=== PATIENT | female | born 1990 | race Caucasian/White ===

== ENCOUNTER 2017-05-11 08:00 | Day surgery (SDC) | payer BC ==
[2017-05-10 12:21] VITALS: BMI 31.1
[2017-05-11] MEDS ORDERED: BUPIVACAINE HCL/PF 0.5% (5MG/ML) 10 ML VIAL ONE (09:34)
[2017-05-11] MEDS ORDERED: LIDOCAINE HCL 2% (20ML MULTI-DOSE VIAL) NR ONE (09:34)
[2017-05-11] MEDS ORDERED: MIDAZOLAM HCL 2 MG/2 ML SINGLE DOSE VIAL ONE (09:36)
[2017-05-11] MEDS ORDERED: PROPOFOL 20 ML ONE ×3 (09:41)
[2017-05-11] MEDS ORDERED: ceFAZolin SODIUM 1 GM VIAL ONE (09:50)
[2017-05-11] MEDS ORDERED: LIDOCAINE HCL 2% (50ML VIAL) INF ONE (10:29)
[2017-05-11] MEDS ORDERED: BUPIVACAINE HCL/PF 0.5% (5MG/ML) 10 ML VIAL IJ ONE ×2 (10:30→10:39)
[2017-05-11 11:58] VITALS: TEMP 98
[2017-05-11 12:00] VITALS: BP 124/74; PULSE 68
--- NOTE | 2017-05-13 16:26 | PATH ---
Surgical Pathology Report Patient Name: YVROSE [facility]AMAN [facility]. Rec. #: [id number] /Age/Gender: 1990 (Age: 26) / F Account: [id number] Location: [facility] AMBULATORY Taken: 05/11/2017 Received: 05/11/2017 Reported: 05/13/2017 Physicians: Louis Alvarez M.D. 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 NO MALIGNANT FEATURES IDENTIFIED. Comment: Recommend correlation with clinical and radiologic findings and follow up as clinically indicated. Electronically Signed Addison Link M.D. Gross Description Received in formalin labeled "soft tissue mass right ring finger," is a 0.6 x 0.5 x 0.1 cm laboy, irregular portion of soft tissue. The specimen is bisected and entirely submitted in one cassette. 05/11/2017 [facility]05/11/2017
--- NOTE | 2017-05-15 12:01 | OP ---
DATE OF OPERATION: 05/11/2017 PREOPERATIVE DIAGNOSIS: Right ring finger soft tissue mass. POSTOPERATIVE DIAGNOSIS: Right ring finger soft tissue mass. PROCEDURES: 1. Excision soft tissue mass, right ring finger. 2. Flexor synovectomy. 3. Volar plate repair. SURGEON: Louis Alvarez MD MANAGER POST: None. ANESTHESIA: Local with sedation. ESTIMATED BLOOD LOSS: Minimal. COMPLICATIONS: None. OPERATIVE INDICATIONS: This is a patient who has been suffering from a mass of the right ring finger for over a year. She first saw me a year ago when the ring got stuck on the finger due to the swelling related to the mass. She has recently noticed persistent enlarging as well as difficulty performing activities of daily living and pain. She wishes to have surgical excision. We discussed the risks, benefits, and alternatives at great length. The risks were explained as including, but not limited to: persistence of the symptoms, injury to adjacent structures, range of motion impairment, need for reoperative surgery, infection, and bleeding. Patient voiced understanding of all these risks. All questions were answered, and consent was signed. OPERATIVE COURSE: The patient was brought to the operating room where a time-out was performed. Anesthesia administered sedation. The patient was laid supine on the operating room table with the right arm out on an arm board. A digital nerve block was performed of the right ring finger using 1% lidocaine, 0.5% Marcaine, and bicarbonate. The hand was prepped and draped in standard sterile fashion. A finger Tourni-Cot was applied to the right ring finger. The mass was over the proximal digital crease corresponding to the PIP joint. A mid-axial incision was made to elevate a skin flap. Great care was taken to identify and protect the neurovascular bundles of the digit. The mass appeared to be emanating from beneath the flexor tendons. There was copious inflamed synovium at this level adherent to the flexor tendons, which were sharply excised with tenotomy scissors. Flexor tendons were gently retracted using Ragnell retractors. The mass appeared to be in continuity and emanating from the volar plate. The ligament and the volar plate were longitudinally incised, and the 0.3 x 0.5 mass was excised. The area was then palpated for further evidence of the soft tissue mass, which was now flat, and the mass was fully excised from the area in question. The volar plate had a consequent defect, which was reapproximated using 4-0 FiberWire suture. This was done in a figure-of-8 fashion. The wound was then copiously irrigated. The skin flaps were reapproximated using 5-0 nylon interrupted sutures. The finger Tourni-Cot was removed. Good capillary refill was noted in the digit distally as well as in normal finger flexion cascade. The patient was placed into a finger splint. She tolerated the procedure well and was brought to the recovery room in stable condition. Elina [id number]
== END 2017-05-11 11:55 | disposition home or self-care (01) ==
LOC: FASU 08:00
PROVIDERS: ATTEND Surgery Surgery of the Hand
PROC: 0RBW0ZZ Excision of Right Finger Phalangeal Joint, Open Approach (ICD-10-PCS; 2017-05-11)
PROC: 0RQW0ZZ Repair Right Finger Phalangeal Joint, Open Approach (ICD-10-PCS; 2017-05-11)
PROC: 0JBJ0ZZ Excision of Right Hand Subcutaneous Tissue and Fascia, Open Approach (ICD-10-PCS; principal; 2017-05-11 10:24)
DX: D21.11 Benign neoplasm of connective and other soft tissue of right upper limb, including shoulder (principal); M65.841 Other synovitis and tenosynovitis, right hand
CPT/HCPCS: 84703; 88304-TC

== ENCOUNTER 2020-12-23 19:00 | Emergency (ER) | payer BC ==
[2020-12-23 19:16] VITALS: BP 120/63; PULSE 74; TEMP 99.4; BMI 35.9
[2020-12-23] MEDS ORDERED: ONDANSETRON 4 MG/2 ML VIAL IVPUSH ONE (19:29)
[2020-12-23] MEDS ORDERED: DEXTROSE 5%-NORMAL SALINE 1,000 ML IV ONE ×2 (19:30)
[2020-12-23] MEDS ORDERED: ONDANSETRON 4 MG/2 ML VIAL ONE (19:45)
[2020-12-23 20:12] LABS: EPITHELIAL CELLS MODERATE /hpf
[2020-12-23 20:25] LABS: MEAN PLT VOLUME 7.8 fl (7.5-11.1)
[2020-12-23 20:27] LABS: HEMATOCRIT 40.4 % (32.4-45.2); MCH 29.8 pg (25.7-33.7); MCHC 34.7 g/dl (32.0-36.0); PLATELET COUNT 250 K/MM3 (134-434); RDW 12.2 % (11.6-15.6); WHITE BLOOD COUNT 14.8 K/mm3 (4.0-10.8)
[2020-12-23 20:31] LABS: ADD RBC MORPHOLOGY YES
[2020-12-23 20:36] LABS: ALBUMIN 4.1 g/dl (3.4-5.0); BILIRUBIN,TOTAL 0.6 mg/dl (0.2-1); CALCIUM 9.2 mg/dl (8.5-10); CREATININE 1.2 mg/dl (0.55-1.3); POTASSIUM 3.4 mmol/L (3.5-5.1); TOT PROT 7.7 g/dl (6.4-8.2)
[2020-12-23 21:27] LABS: PLATELET ESTIMATE ADEQUATE
== END 2020-12-23 22:05 | disposition home or self-care (01) ==
LOC: FER 19:00
PROC: 3E033NZ Introduction of Analgesics, Hypnotics, Sedatives into Peripheral Vein, Percutaneous Approach (ICD-10-PCS; principal; 2020-12-23)
PROC: 3E0337Z Introduction of Electrolytic and Water Balance Substance into Peripheral Vein, Percutaneous Approach (ICD-10-PCS; 2020-12-23)
DX: O21.0 Mild hyperemesis gravidarum (principal); N30.00 Acute cystitis without hematuria
CPT/HCPCS: 36415; 80053; 81003; 81015; 85025; 99285-25

== ENCOUNTER 2021-07-29 19:15 | Inpatient (IN) | payer BC ==
[2021-07-29] MEDS: DEXTROSE 5%-LACTATED RINGERS 1,000 ML IV SCH (20:00)
[2021-07-29] MEDS: ELECTROLYTE-148 SOLN 1,000 ML IV SCH (20:00)
[2021-07-29 21:04] LABS: BASO % 0.4 % (0-2.0); EOS % 0.5 % (0-4.5); EPI CELLS 26 /uL (0-25.1); HEMATOCRIT 31.2 % (32.4-45.2); HEMOGLOBIN 10.9 GM/dL (10.7-15.3); HYALINE CASTS 2 /uL (0-3.1); LYMPH % 19.7 % (8-40); MCH 29.7 pg (25.7-33.7); MCHC 34.8 g/dl (32.0-36.0); MEAN CELL VOLUME 85.4 fl (80-96); MEAN PLT VOLUME 9.2 fl (7.5-11.1); MONO % 7.1 % (3.8-10.2); NEUT % 72.3 % (42.8-82.8); PH,URINE 6.5 (5.0-8.0); PLATELET COUNT 192 10^3/uL (134-434); RBC 3.66 M/mm3 (3.60-5.2); RDW 13.2 % (11.6-15.6); RETICULOCYTES 2.18 % (0.5-1.5); URINE APPEARANCE CLEAR; URINE BACTERIA 733 /uL (0-1359); URINE BILIRUBIN NEGATIVE (NEGATIVE); URINE COLOR YELLOW; URINE GLUCOSE (UA) NEGATIVE (NEGATIVE); URINE KETONE NEGATIVE (NEGATIVE); URINE LEUK ESTERASE TRACE (NEGATIVE); URINE NITRITE NEGATIVE (NEGATIVE); URINE PROTEIN 2+ (NEGATIVE); URINE RBC 6 /uL (0-23.9); URINE WBC 17 /uL (0-25.8); WHITE BLOOD COUNT 9.5 K/mm3 (4.0-10.0)
[2021-07-29 21:10] LABS: INR 0.87 (0.83-1.09); PROTHROMBIN TIME (PATIENT) 10.7 SEC (9.7-13.0)
[2021-07-29 21:13] LABS: ACTIVATED PTT 25.4 SECONDS (25.2-36.5)
[2021-07-29 21:28] LABS: CALCIUM 8.1 mg/dL (8.5-10.1)
[2021-07-29] MEDS ORDERED: DINOPROSTONE 10 MG VAGINAL SUPPOSITORY VG ONE (21:30)
[2021-07-29 21:31] LABS: CREATININE 0.6 mg/dL (0.55-1.3); URIC ACID 4.3 mg/dL (2.6-7.2)
[2021-07-29] MEDS ORDERED: BUTORPHANOL TARTRATE 1 MG/ML VIAL IVPB ONE (21:34)
[2021-07-29] MEDS ORDERED: PROMETHAZINE HCL 25 MG/1 ML VIAL IVPUSH ONE (21:34)
[2021-07-29] MEDS ORDERED: ELECTROLYTE-148 SOLN 1,000 ML IV SCH (21:45)
[2021-07-29 22:33] VITALS: BMI 35.3
[2021-07-30] MEDS ORDERED: ACETAMINOPHEN 325 MG TABLET (FP) PO ONE (03:20)
[2021-07-30] MEDS ORDERED: ACETAMINOPHEN 325 MG TABLET (FP) ONE (03:26)
[2021-07-30] MEDS: DEXTROSE 5%-LACTATED RINGERS 1,000 ML IV SCH ×2 (05:00→22:19)
[2021-07-30] MEDS ORDERED: LABETALOL HCL 5 MG/1 ML (100MG/20 ML VIAL) IVPUSH ONE (09:27)
[2021-07-30] MEDS ORDERED: OXYTOCIN 30 UNITS in 0.9% NS 30 UNIT/500 ML INFUS.BAG IVPB SCH (09:30)
[2021-07-30] MEDS: LABETALOL HCL 5 MG/1 ML (100MG/20 ML VIAL) IVPUSH PRN ×2 (09:55→15:10)
[2021-07-30 11:13] LABS: CALCIUM 7.7 mg/dL (8.5-10.1)
[2021-07-30 11:14] LABS: BLOOD UREA NITROGEN 4.8 mg/dL (7-18)
[2021-07-30 11:16] LABS: CREATININE 0.5 mg/dL (0.55-1.3)
[2021-07-30] MEDS ORDERED: OXYTOCIN 30 UNITS in 0.9% NS 30 UNIT/500 ML INFUS.BAG IVPB ONE (11:48)
[2021-07-30] MEDS ORDERED: MAGNESIUM SULFATE 20GM/500ML - 20 GM/500 ML INFUS.BAG IVPB SCH (14:15)
[2021-07-30] MEDS ORDERED: MAGNESIUM SULFATE 20GM/500ML - 20 GM/500 ML INFUS.BAG ONE ×2 (14:27→22:01)
[2021-07-30] MEDS: MAGNESIUM 4GM/H20 - 4 GM/100 ML IVPB IVPB SCH (14:40)
[2021-07-30] MEDS ORDERED: CITRIC ACID/SODIUM CITRATE 30 ML UNIT-DOSE CUP PO ONE (18:44)
[2021-07-30] MEDS ORDERED: OXYTOCIN 20 UNITS in 0.9% NS 20 UNIT/1,000 ML INFUS.BAG IV ONE (18:56)
[2021-07-30] MEDS ORDERED: SENNOSIDES/DOCUSATE COMBO (SENNA PLUS) TABLET (UD) PO PRN (20:31)
[2021-07-30] MEDS ORDERED: WITCH HAZEL 50% (TUCKS) 40 PAD/JAR PAD TP PRN (20:31)
[2021-07-30] MEDS ORDERED: oxyCODONE HCL 5 MG TABLET PO PRN (20:31)
[2021-07-30] MEDS ORDERED: BENZOCAINE 28 GM HEMORRHOIDAL OINTMENT TP PRN (20:31)
[2021-07-30] MEDS ORDERED: IBUPROFEN 800 MG/8 ML IJ IVPB PRN (20:31)
[2021-07-30] MEDS ORDERED: SIMETHICONE 80 MG TAB.CHEW (FP) PO PRN (20:31)
[2021-07-30] MEDS ORDERED: BENZOCAINE 20% 57 GM BOTTLE TP PRN (20:31)
[2021-07-30] MEDS ORDERED: GLYCOPYRROLATE 0.2 MG/1 ML VIAL ONE (20:32)
[2021-07-30] MEDS ORDERED: PHENYLEPHRINE HCL 10 MG/1 ML SINGLE DOSE VIAL ONE (20:32)
[2021-07-30] MEDS ORDERED: DEXAMETHASONE SOD PHOSPHATE 4 MG/1 ML VIAL ONE (20:32)
[2021-07-30] MEDS ORDERED: ONDANSETRON 4 MG/2 ML VIAL ONE (20:32)
[2021-07-30] MEDS ORDERED: KETOROLAC TROMETHAMINE 30 MG/1 ML VIAL ONE (20:40)
[2021-07-30] MEDS ORDERED: ONDANSETRON 4 MG/2 ML VIAL IVPUSH PRN (20:48)
[2021-07-30] MEDS ORDERED: morphine SULFATE/PF 1 MG/2 ML (2cc Syringe - QUVA) EP ONE (20:48)
[2021-07-30 21:12] LABS: CORD BASE EXCESS -5.1 mmol/L (0-2); CORD HCO3 21.7 mmHg (20-29); CORD PCO2 46.5 mmHg (30-78); CORD pH 7.286 (7.14-7.44)
[2021-07-30 21:15] LABS: CORD BASE EXCESS -5.6 mmol/L (0-2); CORD HCO3 23.2 mmHg (20-29); CORD PCO2 59.2 mmHg (30-78); CORD pH 7.211 (7.14-7.44)
[2021-07-30] MEDS: MAGNESIUM SULFATE 20GM/500ML - 20 GM/500 ML INFUS.BAG IVPB SCH (22:00)
[2021-07-30] MEDS: ESCITALOPRAM OXALATE 20 MG TABLET PO SCH (22:00)
[2021-07-30] MEDS: OXYTOCIN 20 UNITS in 0.9% NS 20 UNIT/1,000 ML INFUS.BAG IV SCH (22:00)
[2021-07-30] MEDS: ELECTROLYTE-148 SOLN 1,000 ML IV SCH (22:16)
[2021-07-31] MEDS ORDERED: OXYTOCIN 20 UNITS in 0.9% NS 20 UNIT/1,000 ML INFUS.BAG IV ONE ×2 (00:50→07:09)
[2021-07-31] MEDS ORDERED: MAGNESIUM SULFATE 20GM/500ML - 20 GM/500 ML INFUS.BAG ONE (07:09)
[2021-07-31] MEDS: OXYTOCIN 20 UNITS in 0.9% NS 20 UNIT/1,000 ML INFUS.BAG IV SCH (07:10)
[2021-07-31] MEDS: MAGNESIUM SULFATE 20GM/500ML - 20 GM/500 ML INFUS.BAG IVPB SCH (07:10)
[2021-07-31] MEDS ORDERED: MAGNESIUM SULFATE 20GM/500ML - 20 GM/500 ML INFUS.BAG IVPB SCH (09:30)
[2021-07-31] MEDS ORDERED: OXYTOCIN 20 UNITS in 0.9% NS 20 UNIT/1,000 ML INFUS.BAG IV SCH (09:30)
[2021-07-31 09:56] LABS: BASO % 0.1 % (0-2.0); HEMATOCRIT 28.2 % (32.4-45.2); HEMOGLOBIN 9.8 GM/dL (10.7-15.3); MCH 29.8 pg (25.7-33.7); MCHC 34.7 g/dl (32.0-36.0); MEAN CELL VOLUME 85.8 fl (80-96); MEAN PLT VOLUME 9.1 fl (7.5-11.1); MONO % 7.3 % (3.8-10.2); NEUT % 78.6 % (42.8-82.8); PLATELET COUNT 173 10^3/uL (134-434); RBC 3.28 M/mm3 (3.60-5.2); RDW 13.8 % (11.6-15.6); WHITE BLOOD COUNT 11.7 K/mm3 (4.0-10.0)
[2021-07-31 10:12] LABS: CHLORIDE 108 mmol/L (98-107); SODIUM 139 mmol/L (136-145)
[2021-07-31 10:14] LABS: ALBUMIN 1.8 g/dl (3.4-5.0); ANION GAP 7 MMOL/L (8-16); CO2 24 mmol/L (21-32)
[2021-07-31 10:16] LABS: BLOOD UREA NITROGEN 5.1 mg/dL (7-18); GLUCOSE,RANDOM 89 mg/dL (74-106); MAGNESIUM 5.9 mg/dL (1.8-2.4)
[2021-07-31 10:17] LABS: SGOT/AST 12 U/L (15-37); SGPT/ALT 11 U/L (13-61)
[2021-07-31 10:19] LABS: CREATININE 0.5 mg/dL (0.55-1.3)
[2021-07-31] MEDS: PRENATAL VITAMINS W/ FOLIC ACID TABLET (FP) PO SCH (10:19)
[2021-07-31 10:20] LABS: BILIRUBIN,TOTAL 0.2 mg/dL (0.2-1); TOT PROT 5.1 g/dl (6.4-8.2)
[2021-07-31 10:21] LABS: ALK PHOS 121 U/L (45-117)
[2021-07-31 10:31] LABS: CALCIUM 6.5 mg/dL (8.5-10.1)
[2021-07-31] MEDS: MAGNESIUM 4GM/H20 - 4 GM/100 ML IVPB IVPB SCH (15:08)
[2021-07-31] MEDS ORDERED: IBUPROFEN 600 MG TABLET (FP) PO ONE (15:09)
[2021-07-31] MEDS ORDERED: ACETAMINOPHEN 325 MG TABLET (FP) ONE (15:09)
[2021-07-31] MEDS: ACETAMINOPHEN 325 MG TABLET (FP) PO PRN (15:15)
[2021-07-31] MEDS: IBUPROFEN 600 MG TABLET (FP) PO PRN (15:15)
[2021-07-31] MEDS: LABETALOL HCL 200 MG TABLET (FP) PO SCH ×2 (17:10→21:53)
[2021-07-31] MEDS: ESCITALOPRAM OXALATE 20 MG TABLET PO SCH (19:40)
[2021-07-31] MEDS ORDERED: BISACODYL 10 MG SUPP.RECT RC PRN (20:31)
[2021-08-01] MEDS: LABETALOL HCL 200 MG TABLET (FP) PO SCH ×3 (06:23→22:23)
[2021-08-01] MEDS: IBUPROFEN 600 MG TABLET (FP) PO PRN ×3 (06:25→22:23)
[2021-08-01] MEDS: PRENATAL VITAMINS W/ FOLIC ACID TABLET (FP) PO SCH (09:29)
[2021-08-01] MEDS: ACETAMINOPHEN 325 MG TABLET (FP) PO PRN (09:29)
[2021-08-01] MEDS: ENOXAPARIN NA (PORCINE) 40 MG/0.4 ML DISP.SYRIN SQ SCH (09:30)
[2021-08-01] MEDS: ESCITALOPRAM OXALATE 20 MG TABLET PO SCH (19:52)
[2021-08-02] MEDS: LABETALOL HCL 200 MG TABLET (FP) PO SCH (06:37)
[2021-08-02 08:42] LABS: BASO % 0.7 % (0-2.0); EOS % 1.1 % (0-4.5); HEMATOCRIT 29.1 % (32.4-45.2); HEMOGLOBIN 10.1 GM/dL (10.7-15.3); LYMPH % 14.5 % (8-40); MCH 30.1 pg (25.7-33.7); MCHC 34.8 g/dl (32.0-36.0); MEAN CELL VOLUME 86.7 fl (80-96); MEAN PLT VOLUME 8.3 fl (7.5-11.1); MONO % 5.6 % (3.8-10.2); NEUT % 78.1 % (42.8-82.8); PLATELET COUNT 179 10^3/uL (134-434); RBC 3.36 M/mm3 (3.60-5.2); RDW 14.1 % (11.6-15.6); WHITE BLOOD COUNT 8.6 K/mm3 (4.0-10.0)
[2021-08-02] MEDS: ENOXAPARIN NA (PORCINE) 40 MG/0.4 ML DISP.SYRIN SQ SCH (10:36)
[2021-08-02] MEDS: PRENATAL VITAMINS W/ FOLIC ACID TABLET (FP) PO SCH (10:37)
[2021-08-02] MEDS: IBUPROFEN 600 MG TABLET (FP) PO PRN (10:42)
[2021-08-02 12:18] VITALS: BP 153/83; PULSE 80; TEMP 98.3
== END 2021-08-02 13:21 | disposition home or self-care (01) | DRG 788 ==
LOC: JLDR 19:15 → J3W 07-31 17:20
PROVIDERS: ADMIT Obstetrics & Gynecology; ATTEND Obstetrics & Gynecology
PROC: 3E0P7VZ Introduction of Hormone into Female Reproductive, Via Natural or Artificial Opening (ICD-10-PCS; 2021-07-29)
PROC: 10D00Z1 Extraction of Products of Conception, Low, Open Approach (ICD-10-PCS; principal; 2021-07-30)
PROC: 3E033VJ Introduction of Other Hormone into Peripheral Vein, Percutaneous Approach (ICD-10-PCS; 2021-07-30)
DX: O14.14 Severe pre-eclampsia complicating childbirth (principal); O61.0 Failed medical induction of labor; D64.9 Anemia, unspecified; O90.81 Anemia of the puerperium; Z3A.38 38 weeks gestation of pregnancy; Z37.0 Single live birth; Z86.59 Personal history of other mental and behavioral disorders
CPT/HCPCS: 36415; 36600; 80048; 80053; 81003; 82803; 82977; 83010; 83735; 84450; 84460; 84550; 85025; 85032; 85045; 85610; 85730; 86780; 86850; 86900; 86901; 88307-TC; 94010; C9803; U0003; U0005

== ENCOUNTER 2021-09-01 13:55 | Emergency (ER) | payer BC ==
[2021-09-01] MEDS ORDERED: SODIUM CHLORIDE 0.9% 1000 ML INFUS.BAG IV ONE (14:13)
[2021-09-01] MEDS ORDERED: METOCLOPRAMIDE HCL INJECTION 10 MG/2 ML VIAL IVPB ONE (14:13)
[2021-09-01 14:23] VITALS: BP 115/45; PULSE 82; TEMP 98; BMI 28.3
[2021-09-01] MEDS ORDERED: METOCLOPRAMIDE HCL INJECTION 10 MG/2 ML VIAL ONE (14:24)
[2021-09-01 15:18] LABS: ALBUMIN 3.6 g/dl (3.4-5.0); BILIRUBIN,TOTAL 0.9 mg/dl (0.2-1); CALCIUM 8.8 mg/dl (8.5-10); CREATININE 0.7 mg/dl (0.55-1.3); TOT PROT 6.9 g/dl (6.4-8.2)
[2021-09-01 16:38] LABS: BASO % 0.5 % (0-2.0); EOS % 1.3 % (0-4.5); HEMATOCRIT 35.3 % (32.4-45.2); HEMOGLOBIN 12.2 GM/dL (10.7-15.3); LYMPH % 26.6 % (8-40); MCH 29.1 pg (25.7-33.7); MCHC 34.4 g/dl (32.0-36.0); MEAN CELL VOLUME 84.6 fl (80-96); MEAN PLT VOLUME 7.8 fl (7.5-11.1); MONO % 6.1 % (3.8-10.2); NEUT % 65.5 % (42.8-82.8); PLATELET COUNT 217 10^3/uL (134-434); RBC 4.17 M/mm3 (3.60-5.2); RDW 13.4 % (11.6-15.6); WHITE BLOOD COUNT 7.7 K/mm3 (4.0-10.0)
== END 2021-09-01 16:14 | disposition home or self-care (01) ==
LOC: FER 13:55
PROC: 3E033GC Introduction of Other Therapeutic Substance into Peripheral Vein, Percutaneous Approach (ICD-10-PCS; principal; 2021-09-01)
PROC: 3E033GC Introduction of Other Therapeutic Substance into Peripheral Vein, Percutaneous Approach (ICD-10-PCS; 2021-09-01)
DX: G43.101 Migraine with aura, not intractable, with status migrainosus (principal)
CPT/HCPCS: 36415; 70450-TC; 80053; 85025; 93005; 99285-25